=== PATIENT | female | born 1970 | race Caucasian/White ===

== ENCOUNTER 2021-07-12 06:58 | Emergency (ER) | payer SELFPAY ==
[~2021-07-12] VITALS: Ht 167.6 cm; Wt 65.0 kg
[2021-07-12 07:08] VITALS: BP 145/83
[2021-07-12 07:16] VITALS: BP 130/109
[2021-07-12 07:30] VITALS: BP 109/74
[2021-07-12] MEDS ORDERED: BACTRIM DS1 TAB PO (07:39)
[2021-07-12] MEDS ORDERED: CEPHALEXIN500 M1 PO (07:39)
[2021-07-12 08:03] VITALS: BP 130/109
== END 2021-07-12 08:03 | disposition home or self-care (01) | DRG 603 ==
LOC: ED 06:58 → EDBD 06:58 → ED 07:33
DX: L03.211 Cellulitis of face (principal); L03.113 Cellulitis of right upper limb; S50.811A Abrasion of right forearm, initial encounter; L98.9 Disorder of the skin and subcutaneous tissue, unspecified; F17.200 Nicotine dependence, unspecified, uncomplicated; X58.XXXA Exposure to other specified factors, initial encounter